=== PATIENT | male | born 1945 | race African-American/Black ===

== ENCOUNTER 2018-02-11 17:53 | Emergency (ER) | payer MEDICARE, MEDICAID ==
[~2018-02-11 17:53] MED LIST: AMLODIPINE
== END 2018-02-11 22:13 | disposition left against medical advice (07) ==
LOC: ER 20:31
DX: Z53.21 Procedure and treatment not carried out due to patient leaving prior to being seen by health care provider (principal)

== ENCOUNTER 2018-02-13 11:24 | Emergency (ER) | payer MEDICARE, MEDICAID ==
[~2018-02-13] VITALS: Ht 180.3 cm; Wt 65.0 kg
[2018-02-13] MEDS ORDERED: FLUORESCEIN SODIUM 1MG/STRIP OP ONE (12:45)
[2018-02-13] MEDS ORDERED: TETRACAINE 0.5% OPHTH DROPS 4ML OP ONE (12:45)
[2018-02-13 14:51] VITALS: BP 142/64
== END 2018-02-13 14:59 | disposition home or self-care (01) ==
LOC: ER 11:51
DX: R51 Headache (principal); F14.10 Cocaine abuse, uncomplicated; F12.10 Cannabis abuse, uncomplicated
CPT/HCPCS: 70450; 99284

== ENCOUNTER 2019-03-28 09:25 | Emergency (ER) | payer MEDICARE, MEDICAID ==
[~2019-03-28] VITALS: Ht 180.3 cm; Wt 82.0 kg
[2019-03-28] MEDS ORDERED: MORPHINE SULFATE 4 MG/ML CPJ (NOT FOR IM USE) IV STA (09:52)
[2019-03-28] MEDS ORDERED: ONDANSETRON HCL 4MG/2ML INJ IV STA (09:52)
[2019-03-28] MEDS ORDERED: SODIUM CHLORIDE 0.9% 1,000 ML IV ONE (09:52)
[2019-03-28 10:08] LABS: BASOPHILS % 0.2 % (0.0-2.0); EOSINOPHILS % 1.5 % (0.0-5.0); HEMATOCRIT. 40.3 % (42.0-52.0); HEMOGLOBIN. 13.6 g/dL (14.0-18.0); LYMPHOCYTES % 17.8 % (20.0-50.0); MEAN CORPUSCULAR HEMOGLOBIN 30.1 pg (28.0-32.0); MEAN CORPUSCULAR VOLUME 89.1 fL (80.0-94.0); MEAN PLATELET VOLUME 9.1 fl (7.4-10.4); MONOCYTES % 10.9 % (2.0-8.0); NEUTROPHILS % 69.6 % (40.0-76.0); PLATELET 208 x1000/uL (130-400); RED BLOOD CELL COUNT 4.52 mill/uL (4.7-6.1); RED CELL DISTRIBUTION WIDTH 15.4 % (11.6-14.6)
[2019-03-28 10:15] LABS: CHLORIDE 109 mEq/L (98-107)
[2019-03-28 10:16] LABS: PARTIAL THROMBOPLASTIN TIME 29.6 sec (23.4-31.0); PROTHROMBIN TIME 10.5 sec (9.6-11.0)
[2019-03-28 12:09] LABS: CLARITY URINE CLEAR (CLEAR); COLOR URINE YELLOW (YELLOW); KETONES URINE NEGATIVE (NEGATIVE); LEUKOCYTE ESTERASE URINE NEGATIVE (NEGATIVE); NITRITE URINE NEGATIVE (NEGATIVE); OCCULT BLOOD URINE NEGATIVE (NEGATIVE); PROTEIN URINE NEGATIVE (NEGATIVE); SPECIFIC GRAVITY URINE 1.021 (1.005-1.030); UROBILINOGEN URINE 0.2 E.U./dL (0.2-1.0)
[2019-03-28] MEDS ORDERED: METRONIDAZOLE 500 MG PREMIX 100 ML IV ONE (13:00)
[2019-03-28] MEDS ORDERED: LEVOFLOXACIN 750MG PREMIX 150 ML IV ONE (13:00)
[2019-03-28] MEDS ORDERED: IOHEXOL-300 100 ML BOTTLE ONE (13:27)
[2019-03-28] MEDS ORDERED: HYDROCODONE/ACETAMINOPHEN 5/325MG TABLET PO ONE (13:30)
[2019-03-28 14:38] VITALS: BP 138/88
== END 2019-03-28 14:40 | disposition home or self-care (01) ==
LOC: ER 09:25
DX: K57.92 Diverticulitis of intestine, part unspecified, without perforation or abscess without bleeding (principal); I10 Essential (primary) hypertension; J44.9 Chronic obstructive pulmonary disease, unspecified; I25.10 Atherosclerotic heart disease of native coronary artery without angina pectoris; F12.10 Cannabis abuse, uncomplicated; F14.10 Cocaine abuse, uncomplicated
CPT/HCPCS: 36415; 71045; 74177; 80053; 81003; 83690; 85025; 85610; 85730; 86850; 86900; 86901; 93005; 96361; 96365; 96367; 96375; 99284; J1956; J2270; J2405; J3490; J7030; Q9967

== ENCOUNTER 2019-08-22 09:57 | Inpatient (IN) | payer MEDICARE, MEDICAID ==
[~2019-08-22] VITALS: Ht 180.3 cm; Wt 80.7 kg
[2019-08-22] MEDS ORDERED: PANTOPRAZOLE SODIUM 40 MG/VIAL IV ONE (10:45)
[2019-08-22] MEDS ORDERED: ASPIRIN 81MG TABLET PO ONE (10:45)
[2019-08-22 11:05] LABS: BASOPHILS % 1.3 % (0.0-2.0); EOSINOPHILS % 3.2 % (0.0-5.0); HEMATOCRIT. 40.2 % (42.0-52.0); HEMOGLOBIN. 13.8 g/dL (14.0-18.0); LYMPHOCYTES % 31.3 % (20.0-50.0); MEAN CORPUSCULAR HEMOGLOBIN 30.2 pg (28.0-32.0); MEAN CORPUSCULAR VOLUME 88.1 fL (80.0-94.0); MEAN PLATELET VOLUME 9.1 fl (7.4-10.4); MONOCYTES % 11.7 % (2.0-8.0); NEUTROPHILS % 52.5 % (40.0-76.0); PLATELET 211 x1000/uL (130-400); RED BLOOD CELL COUNT 4.56 mill/uL (4.7-6.1); RED CELL DISTRIBUTION WIDTH 15.9 % (11.6-14.6)
[2019-08-22 11:10] LABS: CHLORIDE 107 mEq/L (98-107)
[2019-08-22] MEDS ORDERED: DICYCLOMINE 10 MG/5 ML ORAL SYR PO STA (12:13)
[2019-08-22] MEDS ORDERED: VISCOUS LIDOCAINE 2% 15 ML UDC PO STA (12:13)
[2019-08-22] MEDS ORDERED: MAGNESIUM/ALUMINUM HYDROXIDE/SIMETHICONE 30ML UDC PO STA (12:13)
[2019-08-22] MEDS ORDERED: PANTOPRAZOLE 40MG DR TABLET PO ONE (13:45)
[2019-08-22] MEDS ORDERED: ONDANSETRON HCL 4MG/2ML INJ IV PRN (13:45)
[2019-08-22] MEDS ORDERED: ACETAMINOPHEN 325MG TABLET PO PRN (13:45)
[2019-08-22 14:11] LABS: CLARITY URINE CLEAR (CLEAR); COLOR URINE YELLOW (YELLOW); KETONES URINE NEGATIVE (NEGATIVE); LEUKOCYTE ESTERASE URINE NEGATIVE (NEGATIVE); NITRITE URINE NEGATIVE (NEGATIVE); OCCULT BLOOD URINE NEGATIVE (NEGATIVE); PROTEIN URINE NEGATIVE (NEGATIVE); SPECIFIC GRAVITY URINE 1.013 (1.005-1.030); UROBILINOGEN URINE 0.2 E.U./dL (0.2-1.0)
[2019-08-22] MEDS: AMLODIPINE 5MG TABLET PO SCH (14:25)
[2019-08-22 18:08] VITALS: BP 152/84
[2019-08-22] MEDS ORDERED: CLONIDINE 0.1MG TABLET PO PRN (18:15)
[2019-08-22] MEDS ORDERED: IPRATROPIUM/ALBUTEROL 0.5-3(2.5)MG/3ML NEB HHN PRN (18:15)
[2019-08-22 20:00] VITALS: BP 156/84
[2019-08-23] VITALS: BP 105/60
[2019-08-23] MEDS ORDERED: AMLO-79 PO (01:42)
[2019-08-23] MEDS ORDERED: PROT40 PO (01:42)
[2019-08-23] MEDS ORDERED: FAMO-135 PO (01:42)
[2019-08-23] MEDS ORDERED: ALPR2TAB97 PO (01:42)
[2019-08-23 04:00] VITALS: BP 122/73
[2019-08-23 06:39] LABS: BASOPHILS % 0.8 % (0.0-2.0); EOSINOPHILS % 3.3 % (0.0-5.0); HEMATOCRIT. 39.7 % (42.0-52.0); HEMOGLOBIN. 14.3 g/dL (14.0-18.0); LYMPHOCYTES % 28.2 % (20.0-50.0); MEAN CORPUSCULAR HEMOGLOBIN 31.4 pg (28.0-32.0); MEAN CORPUSCULAR VOLUME 87.6 fL (80.0-94.0); MONOCYTES % 11.5 % (2.0-8.0); NEUTROPHILS % 56.2 % (40.0-76.0); PLATELET 221 x1000/uL (130-400); RED BLOOD CELL COUNT 4.54 mill/uL (4.7-6.1)
[2019-08-23 07:13] LABS: CHLORIDE 107 mEq/L (98-107)
[2019-08-23 08:00] VITALS: BP 138/80
[2019-08-23] MEDS: AMLODIPINE 5MG TABLET PO SCH (08:19)
[2019-08-23] MEDS: PANTOPRAZOLE SODIUM 40 MG/VIAL IV SCH (08:19)
[2019-08-23 12:00] VITALS: BP 143/75
[2019-08-23 16:00] VITALS: BP 123/69
[2019-08-23 20:00] VITALS: BP 135/78
[2019-08-24] VITALS: BP 121/71
[2019-08-24 04:00] VITALS: BP 141/82
[2019-08-24 08:00] VITALS: BP 137/70
[2019-08-24] MEDS: AMLODIPINE 5MG TABLET PO SCH (09:53)
[2019-08-24] MEDS: PANTOPRAZOLE SODIUM 40 MG/VIAL IV SCH (09:53)
[2019-08-24 11:06] VITALS: BP 137/70
[2019-08-24 11:36] VITALS: BP 111/71
== END 2019-08-24 11:45 | disposition home or self-care (01) | DRG 392 ==
LOC: ER 10:28 → 6WST 12:13 → EDBEDREQTM 12:22 → EDBEDREQ 12:22 → ENRESERV 16:06
PROVIDERS: ADMIT Internal Medicine; ATTEND Internal Medicine
DX: K29.70 Gastritis, unspecified, without bleeding (principal); I24.9 Acute ischemic heart disease, unspecified; R04.2 Hemoptysis; I10 Essential (primary) hypertension; D64.9 Anemia, unspecified; I25.10 Atherosclerotic heart disease of native coronary artery without angina pectoris; J44.9 Chronic obstructive pulmonary disease, unspecified; F17.290 Nicotine dependence, other tobacco product, uncomplicated
CPT/HCPCS: 36415; 71045; 74018; 80048; 80053; 81003; 84443; 84484; 85025; 93005; 93306; 99291; C9113